=== PATIENT | female | born 1945 | race Hispanic/Latino ===

== ENCOUNTER 2017-12-11 10:06 | Day surgery (SDC) | payer MEDICARE ==
[2017-12-11 11:48] VITALS: BMI 25.8
[2017-12-11] MEDS ORDERED: Sodium Chloride 0.9% 1,000 ML IV SCH (15:30)
[2017-12-11] MEDS ORDERED: Propofol 10 mg/ml Inj (20 ML) ONE (15:37)
[2017-12-11 17:06] VITALS: BP 134/60; PULSE 61; RESP 18; TEMP 97.9; O2SAT 92
== END 2017-12-11 18:05 | disposition home or self-care (01) ==
LOC: ENDO 10:06
PROVIDERS: ATTEND Internal Medicine Gastroenterology
DX: K31.819 Angiodysplasia of stomach and duodenum without bleeding (principal); K62.1 Rectal polyp; K57.30 Diverticulosis of large intestine without perforation or abscess without bleeding; D64.9 Anemia, unspecified; K64.8 Other hemorrhoids
CPT/HCPCS: 36415; 43250; 45381; 45385; 88305; J2001; J2704; J7040 ×2

== ENCOUNTER 2018-10-07 16:52 | Outpatient (CLI) | payer MEDICARE | END 2018-10-07 16:53 | disposition home or self-care (01) | LOC: OPLAB 16:52 ==

== ENCOUNTER 2018-11-08 17:58 | Outpatient (CLI) | payer MEDICARE | END 2018-11-08 17:59 | disposition home or self-care (01) | LOC: OPLAB 17:58 ==

== ENCOUNTER 2018-11-22 15:04 | Outpatient (CLI) | payer MEDICARE | END 2018-11-22 15:05 | disposition home or self-care (01) | LOC: OPLAB 15:04 ==

== ENCOUNTER 2018-12-13 13:06 | Outpatient (CLI) | payer MEDICARE | END 2018-12-13 13:07 | disposition home or self-care (01) | LOC: RAD 13:06 ==

== ENCOUNTER 2018-12-20 17:30 | Outpatient (CLI) | payer MEDICARE | END 2018-12-20 17:31 | disposition home or self-care (01) | LOC: OPLAB 17:30 ==

== ENCOUNTER 2019-01-03 17:30 | Outpatient (CLI) | payer MEDICARE | END 2019-01-03 17:31 | disposition home or self-care (01) | LOC: OPLAB 17:30 ==

== ENCOUNTER 2019-01-17 17:08 | Outpatient (CLI) | payer MEDICARE | END 2019-01-17 17:09 | disposition home or self-care (01) | LOC: OPLAB 17:08 ==

== ENCOUNTER 2019-01-31 18:28 | Outpatient (CLI) | payer MEDICARE | END 2019-01-31 18:29 | disposition home or self-care (01) | LOC: LAB 18:28 ==

== ENCOUNTER 2019-02-14 16:53 | Outpatient (CLI) | payer MEDICARE | END 2019-02-14 16:54 | disposition home or self-care (01) | LOC: OPLAB 16:53 ==

== ENCOUNTER 2019-03-01 17:30 | Outpatient (CLI) | payer MEDICARE | END 2019-03-01 17:31 | disposition home or self-care (01) | LOC: LAB 17:30 ==